=== PATIENT | female | born 1930 | race Caucasian/White ===

== ENCOUNTER 2020-01-03 16:59 | Inpatient (IN) | payer MEDICARE, OTHER ==
--- NOTE | 2020-01-03 17:37 | EDM.PDOC ---
ED HPI GENERAL MEDICAL PROBLEM - General Chief Complaint: General Stated Complaint: WEAKNESS Time Seen by Provider: 01/03/20 17:15 Source of Information: Reports: Patient History Limitations: Reports: No Limitations - History of Present Illness INITIAL COMMENTS - FREE TEXT/NARRATIVE: Patient presents to the Emergency department from the clinic with complaints of lower weakness extremity and heavy feeling. Patient states that this morning when she woke up she felt her lower extremities were heavy feeling. She needed to use her walker she went to get her hair done at the living facility. After she was completed with her appointment her legs continue to feel more progressively heavy. They ended up calling the nurse and bring in a wheelchair. Patient was brought back to the nurses station vital signs were taken. Patient ended up getting appointment and was seen in the clinic at around 3 PM this afternoon labs were drawn. No phone call was completed by the primary care provider but the patient was sent over the emergency department for further evaluation and work-up regarding the lower extremity weakness. Patient states that she denies any headache, nausea, vomiting, chest pain, shortness of breath, GI upset, or loss of bowel or bladder. Does have extensive peripheral edema and states that she does have edema on a normal basis but does feel that her legs are more stiff and hard than they normally are. She does have some visual impairment in general after having a stroke approximately 5 years ago. Patient also states that she has some right sided numbness and tingling that started after her stroke 5 years ago. Patient denies any changes in either of these symptoms since then and does not feel that any of them have gotten any worse or progressive today. Patient denies any COVID-19 symptoms that she has been relatively healthy other than the heavy feeling in her lower extremities today. Onset: Sudden, Gradual Duration: Constant Location: Reports: Lower Extremity, Left, Lower Extremity, Right Quality: Reports: Other Improves with: Reports: None Worsens with: Reports: None Associated Symptoms: Reports: No Other Symptoms ED ROS GENERAL - Review of Systems Review Of Systems: Comprehensive ROS is negative, except as noted in HPI. Constitutional: Denies: Fever, Chills, Malaise, Weakness, Fatigue, Night Sweats, Diaphoresis, Decreased Appetite, Weight Loss HEENT: Reports: No Symptoms Respiratory: Reports: No Symptoms Cardiovascular: Reports: No Symptoms Endocrine: Reports: No Symptoms GI/Abdominal: Reports: No Symptoms : Reports: No Symptoms Skin: Reports: No Symptoms Neurological: Reports: No Symptoms Psychiatric: Reports: No Symptoms ED EXAM, GENERAL - Physical Exam Exam: See Below Exam Limited By: No Limitations General Appearance: Alert, WD/WN, No Apparent Distress Eye Exam: Bilateral Eye: Other (poor vision ) Throat/Mouth: Normal Inspection, Normal Lips, Normal Voice, No Airway Compromise Head: Atraumatic, Normocephalic Neck: Normal Inspection, Supple, Non-Tender, Full Range of Motion Respiratory/Chest: No Respiratory Distress, Lungs Clear, Normal Breath Sounds, No Accessory Muscle Use, Chest Non-Tender Cardiovascular: Normal Peripheral Pulses, Regular Rate, Rhythm, No Edema Peripheral Pulses: 2+: Dorsalis Pedis (L), Dorsalis Pedis (R), 4+: Radial (L), Radial (R) GI/Abdominal: Normal Bowel Sounds, Soft, Non-Tender Back Exam: Normal Inspection, Full Range of Motion Extremities: Normal Inspection, Normal Range of Motion, Non-Tender, Normal Capillary Refill Neurological: Alert, Oriented, CN II-XII Intact Psychiatric: Normal Affect, Normal Mood Skin Exam: Warm, Normal Color, No Rash, Erythema, Other (3+ edema bilateral lower extremities ) Course - Vital Signs Last Recorded V/S: Last Vital Signs Temp 36.9 C 01/03/20 17:31 Pulse 62 01/03/20 17:31 Resp 20 01/03/20 17:31 BP 184/65 H 01/03/20 17:31 Pulse Ox 95 01/03/20 17:31 - Orders/Labs/Meds Orders: Active Orders 24 hr Category Date Time Status EKG Documentation Completion [RC] STAT Care 01/03/20 17:21 Active Labs: Laboratory Tests 01/03/20 01/03/20 Range/Units 17:37 17:37 PT 20.9 H (9.5-12.3) SEC INR 2.0 (2.0-3.5) Troponin I < 0.017 (<=0.056) ng/mL NT-Pro-B Natriuret Pep 1627 H (<=450) pg/mL Departure - Departure Time of Disposition: 18:20 Disposition: Admitted As Inpatient 68 Condition: Good Clinical Impression: Weakness Fluid overload Qualifiers: Hypervolemia type: other Qualified Code(s): E87.79 - Other fluid overload - Discharge Information Referrals: Nicolette Harris DO [Primary Care Provider] - Forms: ED Department Discharge Sepsis Event Note (ED) - Focused Exam Vital Signs: Vital Signs Temp Pulse Resp BP Pulse Ox 01/03/20 17:31 36.9 C 62 20 184/65 H 95 - My Orders Last 24 Hours: My Active Orders 01/03/20 17:21 EKG Documentation Completion [RC] STAT - Assessment/Plan Last 24 Hours: My Active Orders 01/03/20 17:21 EKG Documentation Completion [RC] STAT Assessment:: 1. bilateral lower leg weakness 2. peripheral edema Plan: 1. Labs completed in the ER. Results reviewed with the patient 2. CT head completed in ER. 3. Labs completed in the clinic today: WBC 6.3, RBC 3.59, HGB 11.2, glucose 100, BUN 20, CR 0.95, N+ 141 K+ 4.6 GFR 56. 4. EKG completed in ER- Left bundle branch block noted 5. Lasix 20mg IV given in the ER 6. Consultation completed with Dr. Harris who will admit acute care for weakness and fluid overload 7. Patient and nursing staff was updated regarding the plan of care 8. Patient and family are agreeable to the above plan of care 9. All questions and concerns were addressed with the patient and family prior to admission
--- NOTE | 2020-01-03 18:08 | CT ---
[id number] CT/CT Head WO IV EXAM: CT Head WO IV CLINICAL DATA: WEAKNESS NEUROLOGIC DEFICIT COMPARISON: NO PREVIOUS SIMILAR EXAM IS AVAILABLE FOR COMPARISON. FINDINGS: There is no mass or mass effect. An old lacunar infarct is seen involving the posterior limb of the internal capsule on the left There is no hemorrhage or hydrocephalus. There are no extra-axial fluid collections. There are no sites of abnormal attenuation. IMPRESSION: NO PLAIN CT EVIDENCE OF ACUTE INTRACRANIAL PROCESS. Carlitos Tidwell MD 01/03/20 3627 Thank you for allowing us to participate in the care of your patient.
[2020-01-03] MEDS ORDERED: Furosemide 20 MG/2 ML VIAL IV ONE (18:14)
[2020-01-03] MEDS: Sodium Chloride 0.9% 10 ML Syringe FLUSH PRN (18:26)
[2020-01-03] MEDS ORDERED: ALPRAZolam 0.5 MG Tab PO PRN (20:08)
[2020-01-03] MEDS ORDERED: Warfarin 5 MG Tab PO SCH (20:15)
[2020-01-03] MEDS: atorvaSTATin 40 MG Tab PO SCH (21:02)
--- NOTE | 2020-01-03 23:34 | HP ---
CHIEF COMPLAINT: Leg weakness. HISTORY OF PRESENT ILLNESS: This is an 89-year-old female who was feeling fine yesterday, but when she got up this morning she noticed both legs were weak and she was having a hard time walking. She did get her hair done. She also had some right arm numbness, but she attributes that to her stroke that she had years ago. She had not had any cough. No fever or chills. No burning with urination. Just having trouble walking. Therefore, a clinic visit was made. However, her blood pressure was elevated and there was concern she might have had a stroke, so she was transitioned over to the ER and had a head CT, which failed to reveal any acute strokes or bleeding. She is on Coumadin, and her INR was therapeutic at 2.2. She did have an old lacunar infarct involving the posterior limb of the internal capsule on the left noted. She also had a CBC, which showed a mild anemia 11.2, but improved from her previous hemoglobin. Her white count was normal at 6.3. Her glucose was 100. The rest of her electrolyte panel was all normal. She has not been short of breath. She denies orthopnea, but she has had some weight gain over time and increased edema to her lower extremities. She did have back in October, a TSH significantly elevated to 39, and was started on thyroid medication. The patient has had some heart issues ever since about 07/2018. She had a Holter at that time, which showed her to have some bradycardia. No tachycardia. No echo was performed, but she was started on Lasix. Her EKG today does show a new left bundle-branch block, but again no chest pain known. No known history of coronary disease. Coumadin is for history of DVT and stroke. She has not been documented to have AFib. ALLERGIES: Her allergy list is none. MEDICATION LIST: Reviewed. Includes levothyroxine 25 mcg daily, Coumadin 5 mg on Monday, Monday, Monday, 2.5 the rest of the week, Celexa 20 mg daily, Lipitor 40 mg daily, Prilosec 20 mg daily, Prolia every 6 months, Xanax 0.25 every 12 hours as needed for nervousness or anxiety, Tylenol as needed, Timoptic eye drops, vitamin D 2000 units daily, calcium and D, and multivitamin. PAST MEDICAL HISTORY: Includes the acute left SITE PLANNER stroke in 2015. Her vision was affected. Adjustment disorder on Celexa, mild anemia, history of atrial septal defect, on Coumadin since her stroke, glaucoma, history of the DVT, essential hypertension, lumbar radiculopathy. At one point, took hydrocodone, but has been off it for years. 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 Osteopenia with increased fracture risk, on Prolia. PAST SURGICAL HISTORY: The patient has had a left shoulder arthroscopy. FAMILY HISTORY: Both parents are . Her mother did have hypothyroidism. Father had emphysema. SOCIAL HISTORY: The patient is . She lives at [facility] with her . She used to work at [employer]. She had 4 children. She is a nonsmoker, nondrinker. REVIEW OF SYSTEMS: Constitutional: The patient thinks she has gained some weight, but no fever, no chills. She has had some weakness, especially in her legs. HEENT: No sore throat. No trouble swallowing. Cardiac: No chest pain. No palpitations. Respiratory: No cough. No shortness of breath. Otherwise, all systems reviewed and found to be negative unless otherwise stated. LABORATORY WORK: In the clinic again was discussed in the HPI. Her lab work in the ER showed an INR of 2.0. Troponin negative. ProBNP 1627. TSH ordered and pending. EKG, again left bundle-branch block. Chest x-ray pending. ASSESSMENT: 1. Bilateral leg edema with known hypothyroidism. We will rule out severe hypothyroidism, but also treat for congestive heart failure given the new left bundle-branch block. It is very likely the patient has some heart failure. We will see how she does. We will repeat lab work in the morning to include her magnesium level. The patient has not required any Lasix in the past, but we will give her some here especially due to the significantly elevated blood pressures. 2. Essential hypertension with currently uncontrolled blood pressures probably contributing to her edema and swelling. This should improve with Lasix. We will also continue her home medications. 3. Hypothyroidism. We will continue her levothyroxine. If her TSH is over 50, I will give her some IV thyroid medication. 4. History of stroke with deep venous thrombosis. She is on Coumadin. She has a therapeutic INR. 5. Left bundle-branch block. No history of coronary disease. We will monitor with telemetry. 6. Anemia. Her hemoglobin is around her baseline. 7. Osteoporosis. PLAN: At this point, the patient will be admitted for acute cares. We will hold off on any IV fluids. We will work on blood pressure and diuresis. For her stress ulcer prophylaxis, we will continue her on Prilosec. Otherwise, she is a code level 3. She would not want CPR or intubation. Her was also present during our visit. MKA: 01/03/2020 20:33:01 MODL: 01/03/2020 23:07:01 /[id number]
[2020-01-03] MEDS: Acetaminophen 325 MG Tab PO SCH (23:54)
[2020-01-04] MEDS: Acetaminophen 325 MG Tab PO SCH ×5 (06:13→20:53)
[2020-01-04] MEDS ORDERED: Levothyroxine 25 MCG Tab PO SCH ×2 (07:00→08:00)
[2020-01-04] MEDS ORDERED: Furosemide 20 MG/2 ML VIAL IV SCH (08:00)
[2020-01-04] MEDS: Sodium Chloride 0.9% 10 ML Syringe FLUSH PRN ×2 (09:03→12:28)
[2020-01-04] MEDS: Citalopram 20 MG Tab PO SCH (09:05)
[2020-01-04] MEDS: Calcium Carbonate/Vitamin D3 1250 MG-200 Unit Tab PO SCH (09:05)
[2020-01-04] MEDS: Multivitamins with Iron/Calcium/Folic Acid/Minerals Tab PO SCH (09:05)
[2020-01-04] MEDS: Omeprazole 20 MG Cap.CR PO SCH (09:05)
[2020-01-04] MEDS ORDERED: Magnesium Sulfate/Water 2 GM in Premix Bag 1 BAG IV ONE (09:13)
[2020-01-04] MEDS: Timolol Maleate 0.5% Ophth Soln 5 ML Bottle EYEBOTH SCH ×2 (09:13→20:50)
[2020-01-04] MEDS: Levothyroxine 75 MCG Tab PO SCH (09:38)
[2020-01-04] MEDS ORDERED: ceFAZolin 1 GM Vial IVPUSH SCH ×2 (10:00→12:00)
--- NOTE | 2020-01-04 11:29 | CR ---
[id number] RAD/RAD Chest PA or AP 1V EXAM: SINGLE VIEW CHEST. INDICATION: LOWER EXTREMITY SWELLING COMPARISON: NO PREVIOUS SIMILAR EXAM IS AVAILABLE FINDINGS: The lungs are clear The cardiac silhouette is enlarged The aorta is slightly tortuous There is a small hiatal hernia IMPRESSION: NO PNEUMONIA OR EDEMA Carlitos Tidwell MD 01/04/20 1128 Thank you for allowing us to participate in the care of your patient.
--- NOTE | 2020-01-04 11:39 | PN ---
Progress Note for KIRILL STOUT Date: 01/04/2020 Room #: VM.204 SUBJECTIVE: This is hospital day #2 on an 89-year-old admitted with bilateral leg weakness and swelling. She has pain and achiness all over, especially worse in her left lower leg which is now red and was not red on admission. She took some Tylenol now just this morning. She has been afebrile. She has not had any trouble breathing. No cough. Her chest x-ray looked okay. Her UA has not yet returned. Her blood pressure which was quite elevated on admission has improved with IV diuresis. She has been incontinent of urine. The patient otherwise was recently started on Synthroid for hypothyroidism. Her TSH continues to be up to 29. She does have no history of heart failure, but EKG showed a new left bundle- branch block. Her troponins have been negative. She has had no events on telemetry, been sinus benji around 54. OBJECTIVE: VITAL SIGNS: Her temperature is 98.3, pulse 54, blood pressure 141/47, respiratory rate 17, and O2 of 95% on room air. GENERAL: She is in no acute distress. She is resting comfortably in bed. HEART: Regular rate and rhythm. S1, S2 without murmur. LUNGS: Lung sounds are clear to auscultation bilaterally without crackles or wheezes. ABDOMEN: Positive bowel sounds. Soft, nontender. EXTREMITIES: Warm and dry. Just trace edema, now it has significantly improved, but she has the redness and tenderness to the left lee. MENTAL STATUS: She is alert, she is orientated x3. LABORATORY DATA: Lab work today; white count normal 6.4, hemoglobin down slightly from 11 to 10.3. Sodium 142, potassium 4, chloride 104, bicarb 32, BUN 22, creatinine up slightly to 1.2, magnesium low at 1.6. ASSESSMENT: 1. Severe hypothyroidism with bilateral leg edema and weakness. We will increase her levothyroxine to 75 mcg daily. 2. Generalized achiness. We will do a sedimentation rate to rule out polymyalgia. 3. Left lower extremity cellulitis, possibly causing some of her weakness. We will start her on some IV Ancef today. 4. Possible acute heart failure exacerbation, unspecified. I am going to continue IV Lasix given her hypertension, but just once daily. 5. Essential hypertension with improving blood pressures. Continue home medications. 6. History of stroke with previous deep venous thrombosis. She is on Coumadin. We will check an INR tomorrow. 7. Chronic anemia. Hemoglobin remained stable. 8. Osteoporosis. PLAN: At this point, the patient will continue on acute cares. We will start IV antibiotics. We will get her UA today, straight cath if needed. We will add on a CRP to this morning's labs and repeat lab work tomorrow with an INR and an ESR. For DVT prophylaxis, she is therapeutic on Coumadin. MKA: 01/04/2020 10:02:50 MODL: 01/04/2020 10:40:02 /[id number]
[2020-01-04] MEDS: atorvaSTATin 40 MG Tab PO SCH (20:52)
[2020-01-04] MEDS: Warfarin 2.5 MG Tab PO SCH (20:53)
[2020-01-04] MEDS: ceFAZolin 1 GM Vial IVPUSH SCH (20:55)
[2020-01-05] MEDS: Acetaminophen 325 MG Tab PO SCH ×7 (01:45→23:56)
[2020-01-05] MEDS: Levothyroxine 75 MCG Tab PO SCH (06:20)
[2020-01-05] MEDS ORDERED: Furosemide 20 MG/2 ML VIAL IV SCH (08:00)
[2020-01-05] MEDS: ceFAZolin 1 GM Vial IVPUSH SCH ×2 (08:58→21:28)
[2020-01-05] MEDS: Multivitamins with Iron/Calcium/Folic Acid/Minerals Tab PO SCH (09:00)
[2020-01-05] MEDS: Citalopram 20 MG Tab PO SCH (09:00)
[2020-01-05] MEDS: Calcium Carbonate/Vitamin D3 1250 MG-200 Unit Tab PO SCH (09:00)
[2020-01-05] MEDS: Omeprazole 20 MG Cap.CR PO SCH (09:00)
[2020-01-05] MEDS: Timolol Maleate 0.5% Ophth Soln 5 ML Bottle EYEBOTH SCH ×2 (09:01→21:28)
[2020-01-05] MEDS: Sodium Chloride 0.9% 10 ML Syringe FLUSH PRN ×2 (09:03→21:29)
[2020-01-05] MEDS: Hydrochlorothiazide 12.5 MG Cap PO SCH (09:06)
[2020-01-05] MEDS ORDERED: Magnesium Hydroxide 400 MG/5 ML Susp 30 ML Cup PO ONE ×2 (09:09→12:45)
--- NOTE | 2020-01-05 10:51 | PN ---
Progress Note for KIRILL STOUT Date: 01/05/2020 Room #: VM.204 SUBJECTIVE: This is hospital day #3 for an 89-year-old admitted with bilateral leg weakness and swelling. Concern was for a CHF exacerbation, although patient has not had a history of that or ever been on Lasix. She does have known history of stroke due to DVT, not even a history of atrial fibrillation. On her 2nd hospital day, it was noted that her lower extremity on the left was red and more tender. Therefore, she was started on IV Ancef for cellulitis. The swelling and redness are improving. It is batch still operator to palpation but tender also on the right lee. She also had a normal ESR that was done due to being achy all over yesterday. Her CRP was 1. Her CK level came today at 298. It had not been checked previously. The patient states that all her achiness is gone. She has not had any cough. No shortness of breath. She has been afebrile. Blood pressures continue to be high. She has not had a bowel movement since admission, and she has been eating between 50% to 80% of her meals over the last day. The patient says last bowel movement was probably on , which would have been the 25th. OBJECTIVE: VITAL SIGNS: Today, the patient's temperature 98.9, pulse 52, blood pressure 160/78, respiratory rate 16, and O2 of 96 on room air. GENERAL: She is in no acute distress. HEART: Regular rate and rhythm. S1, S2 without murmur. LUNGS: Lung sounds are clear to auscultation bilaterally without crackles or wheezes. EXTREMITIES: Warm and dry. She has just trace edema. She has redness over the left lee above the ankle. It has not spread. She has normal range of motion of the ankle with no joint effusion. There is no worsening warmth there, but it is slightly tender to palpation. MENTAL STATUS: She is alert. She is orientated x3. ABDOMEN: Positive bowel sounds. Soft, nontender. LABORATORY WORK: Does show her to have white count of 5.4; hemoglobin 10.4, which is up from yesterday; and platelets 153. INR 2.1. Sodium 143; potassium 4; chloride 104; bicarbonate 30; BUN 22; creatinine 1.3; magnesium replaced yesterday, not yet repeated; and CK 298. Her TSH was also 29.5 on admission. ASSESSMENT: 1. Severe hypothyroidism with bilateral leg edema and weakness. She was increased on levothyroxine to 75 mcg daily. She is aware that this may take time to improve. 2. Left lower extremity cellulitis, on day #2 of intravenous Ancef, improving. This was probably contributing somewhat to her symptoms as well. 3. Possible acute heart failure exacerbation. The patient has not had any further signs or symptoms. No shortness of breath. No edema on her chest x-ray. We will stop intravenous Lasix. 4. Essential hypertension. Blood pressures continue to be elevated. She will start on hydrochlorothiazide daily. We will avoid beta blockers due to bradycardia and for her mild renal insufficiency with creatinine up to 1.3 from diuresis, we will hold off on any lisinopril right now. 5. History of previous stroke with deep vein thrombosis. She is on Coumadin. INR therapeutic today. 6. Chronic anemia. Hemoglobin is stable. 7. Osteoporosis. 8. History of anxiety. Her moods have been good. PLAN: At this point, the patient will continue on acute cares. We will continue on the IV Ancef. We will repeat laboratory work tomorrow and get her up and working with therapies to see if she is stable to go home versus needing swing bed. The patient is agreeable to this plan. MKA: 01/05/2020 09:12:26 MODL: 01/05/2020 09:39:17 /[id number]
[2020-01-05] MEDS: Warfarin 2.5 MG Tab PO SCH (21:26)
[2020-01-05] MEDS: atorvaSTATin 40 MG Tab PO SCH (21:26)
[2020-01-06] MEDS: Acetaminophen 325 MG Tab PO SCH ×3 (04:00→12:11)
[2020-01-06] MEDS: Levothyroxine 75 MCG Tab PO SCH (06:39)
[2020-01-06 07:35] LABS: ANION GAP 11.2 mmol/L (10-20)
[2020-01-06] MEDS: Sodium Chloride 0.9% 10 ML Syringe FLUSH PRN (07:43)
[2020-01-06] MEDS: Multivitamins with Iron/Calcium/Folic Acid/Minerals Tab PO SCH (07:45)
[2020-01-06] MEDS: Citalopram 20 MG Tab PO SCH (07:45)
[2020-01-06] MEDS: Hydrochlorothiazide 12.5 MG Cap PO SCH (07:45)
[2020-01-06] MEDS: Calcium Carbonate/Vitamin D3 1250 MG-200 Unit Tab PO SCH (07:46)
[2020-01-06] MEDS: Omeprazole 20 MG Cap.CR PO SCH (07:46)
[2020-01-06] MEDS: ceFAZolin 1 GM Vial IVPUSH SCH (07:48)
--- NOTE | 2020-01-06 08:26 | HP ---
ADDENDUM: PHYSICAL EXAMINATION: Vital Signs: On admission, her temperature is 99.4, pulse 62, blood pressure 184/64, respiratory rate 16, O2 of 95% on room air. General: She is in no acute distress. Heart: Regular rate and rhythm. S1, S2 without murmur. Lungs: Sounds are clear to auscultation bilaterally without crackles or wheezes. Extremities: Warm and dry, but 2+ edema bilaterally with significant tenderness, but no redness or warmth. Mental Status: She is alert, she is orientated x3. Her pupils are equal, round, reactive to light. She has equal ride attendant strength bilaterally, but her skin does appear mildly pale. MKA: 01/04/2020 10:04:54 MODL: 01/04/2020 11:04:20 /[id number]
[2020-01-06] MEDS: Timolol Maleate 0.5% Ophth Soln 5 ML Bottle EYEBOTH SCH (08:49)
[2020-01-06] MEDS ORDERED: Lisinopril 2.5 MG Tab PO SCH (11:45)
[2020-01-06] MEDS ORDERED: Cephalexin 250 MG Cap PO SCH (12:00)
--- NOTE | 2020-01-07 04:09 | DISCH ---
PRIMARY DISCHARGE DIAGNOSES: 1. Bilateral leg weakness secondary to severe hypothyroidism. 2. Left lower extremity cellulitis. 3. Leg swelling and edema, concern for heart failure. However, the patient has no history of this and had no breathing issues. 4. History of stroke, on Coumadin for previous blood clots with therapeutic INR. 5. Essential hypertension, uncontrolled but under improved control on hydrochlorothiazide, previously she took low-dose lisinopril. 6. Chronic anemia. Her hemoglobin has been stable. 7. History of anxiety. She has not required any extra Xanax. 8. Osteoporosis. REASON FOR ADMISSION: On the date of admission, this 89-year-old female came into the clinic with bilateral leg pain that started that morning at assisted living. There were also some reports of right arm numbness, so she was sent to the ER for a stroke code. However, her right arm numbness she reports was from her previous stroke. She had a head CT which did not show any acute bleeds. She had lab work which pretty much looked stable. Her inflammation marker was normal. Due to some generalized pain on the next morning, I did check a CK which was 298, but that did normalize. She did not get any IV fluid. She actually got IV Lasix due to her elevated blood pressures and like the 180 systolic which did improve her blood pressure. Her proBNP was 1627, but she never at any point had any shortness of breath and her chest x-ray did not show any fluid. UA did not show an infection. Repeated TSH was 29. Her creatinine was 1.2 on admit and was down to 1.1 on discharge. Hemoglobin remained in the 10 range which was normal for her. Otherwise, the patient worked with Therapies today and they felt she would benefit from a swing bed stay. Initially, her legs were both tender, but on the morning of the , she had some redness and warmth and was started on IV Ancef, but will be switched over to oral Keflex on antibiotic day #3 today. PHYSICAL EXAMINATION: Vital Signs: Discharge vitals include a temperature 99. The patient had no high fevers during her stay. Weight 64.8 kg, pulse 80, blood pressure 120/49, respiratory rate 16, O2 of 94 on room air. General: She is in no acute distress. Heart: Regular rate and rhythm. S1, S2 without murmurs. Lungs: Lung sounds are clear to auscultation bilaterally without crackles or wheezes. Abdomen: Positive bowel sounds. Soft, nontender. Extremities: Warm and dry. No edema. Mental Status: Alert and orientated x3. DISCHARGE PLANS/INSTRUCTIONS: The patient is going over to swing bed for further therapies. We will get an OT assessment as well. She will use the incentive spirometry. We will repeat lab work on Monday to get another INR. We will continue her on hydrochlorothiazide, but I will hold off on starting her on any lisinopril now that her blood pressures are under better control. Greater than 30 minutes spent on the discharge process. MKA: 01/06/2020 14:16:11 MODL: 01/06/2020 14:32:34 /[id number]
[2020-01-07] MEDS ORDERED: Non-Formulary Medication 1 Each (Denosumab [Prolia] 60 MG) SUBCUT SCH (20:15)
== END 2020-01-06 13:17 | disposition swing bed (61) | DRG 644 ==
LOC: VM.ED 16:59 → VM.MS 18:14
PROVIDERS: ADMIT Internal Medicine; ATTEND Internal Medicine
DX: R53.1 Weakness (principal); E87.79 Other fluid overload; R60.9 Edema, unspecified; H54.7 Unspecified visual loss; E03.9 Hypothyroidism, unspecified; L03.116 Cellulitis of left lower limb; Q21.1 Atrial septal defect; I50.9 Heart failure, unspecified; I11.0 Hypertensive heart disease with heart failure; D64.9 Anemia, unspecified; F41.9 Anxiety disorder, unspecified; M81.0 Age-related osteoporosis without current pathological fracture; F43.20 Adjustment disorder, unspecified; M54.16 Radiculopathy, lumbar region; M19.011 Primary osteoarthritis, right shoulder; M85.80 Other specified disorders of bone density and structure, unspecified site; I44.7 Left bundle-branch block, unspecified; Z86.73 Personal history of transient ischemic attack (TIA), and cerebral infarction without residual deficits; Z79.1 Long term (current) use of non-steroidal anti-inflammatories (NSAID); Z79.01 Long term (current) use of anticoagulants; Z79.890 Hormone replacement therapy; Z79.899 Other long term (current) drug therapy; Z86.718 Personal history of other venous thrombosis and embolism
CPT/HCPCS: 36415; 70450; 71045; 80048; 81001; 82550; 83735; 83880; 84443; 84484; 85025; 85610; 85652; 86140; 93005; 97162-GP; 99284-GF; 99285-25; A9270-GY; J0690; J1940; J3475

== ENCOUNTER 2020-01-06 12:34 | Inpatient (IN) | payer MEDICARE, OTHER ==
[2020-01-06] MEDS ORDERED: Sodium Chloride 0.9% 10 ML Syringe FLUSH PRN (13:37)
[2020-01-06] MEDS: Acetaminophen 325 MG Tab PO SCH ×2 (16:45→21:08)
[2020-01-06] MEDS ORDERED: Warfarin 5 MG Tab PO SCH (20:00)
[2020-01-06] MEDS: ALPRAZolam 0.5 MG Tab PO PRN (21:08)
[2020-01-06] MEDS: Cephalexin 250 MG Cap PO SCH (21:08)
[2020-01-06] MEDS: atorvaSTATin 40 MG Tab PO SCH (21:09)
[2020-01-06] MEDS: Timolol Maleate 0.5% Ophth Soln 5 ML Bottle EYEBOTH SCH (21:09)
[2020-01-07] MEDS: Acetaminophen 325 MG Tab PO SCH ×6 (01:30→19:50)
[2020-01-07] MEDS: Levothyroxine 75 MCG Tab PO SCH (06:08)
[2020-01-07] MEDS: Omeprazole 20 MG Cap.CR PO SCH (06:08)
[2020-01-07] MEDS: Hydrochlorothiazide 12.5 MG Cap PO SCH (08:12)
[2020-01-07] MEDS: Cephalexin 250 MG Cap PO SCH ×3 (08:13→19:50)
[2020-01-07] MEDS: Multivitamins with Iron/Calcium/Folic Acid/Minerals Tab PO SCH (08:13)
[2020-01-07] MEDS: Calcium Carbonate/Vitamin D3 1250 MG-200 Unit Tab PO SCH (08:13)
[2020-01-07] MEDS: Citalopram 20 MG Tab PO SCH (08:13)
[2020-01-07] MEDS: Timolol Maleate 0.5% Ophth Soln 5 ML Bottle EYEBOTH SCH ×2 (08:16→19:51)
[2020-01-07] MEDS: atorvaSTATin 40 MG Tab PO SCH (19:50)
[2020-01-07] MEDS: Warfarin 2.5 MG Tab PO SCH (19:50)
[2020-01-07] MEDS: ALPRAZolam 0.5 MG Tab PO PRN (21:30)
[2020-01-08] MEDS: Acetaminophen 325 MG Tab PO SCH ×7 (00:46→20:23)
[2020-01-08] MEDS: Omeprazole 20 MG Cap.CR PO SCH ×2 (05:32→07:01)
[2020-01-08] MEDS: Levothyroxine 75 MCG Tab PO SCH ×2 (05:32→07:01)
[2020-01-08 07:26] LABS: ANION GAP 9.7 mmol/L (10-20)
[2020-01-08] MEDS: Timolol Maleate 0.5% Ophth Soln 5 ML Bottle EYEBOTH SCH ×2 (08:24→20:29)
[2020-01-08] MEDS: Lactobacillus Rhamnosus GG (Probiotic) Cap PO SCH (08:25)
[2020-01-08] MEDS: Multivitamins with Iron/Calcium/Folic Acid/Minerals Tab PO SCH (08:25)
[2020-01-08] MEDS: Citalopram 20 MG Tab PO SCH (08:25)
[2020-01-08] MEDS: Cephalexin 250 MG Cap PO SCH ×3 (08:25→20:23)
[2020-01-08] MEDS: Calcium Carbonate/Vitamin D3 1250 MG-200 Unit Tab PO SCH (08:25)
[2020-01-08] MEDS: Hydrochlorothiazide 12.5 MG Cap PO SCH (08:25)
[2020-01-08] MEDS: atorvaSTATin 40 MG Tab PO SCH (20:23)
[2020-01-08] MEDS: ALPRAZolam 0.5 MG Tab PO PRN (20:29)
[2020-01-09] MEDS: Acetaminophen 325 MG Tab PO SCH ×6 (01:42→19:37)
[2020-01-09] MEDS: Omeprazole 20 MG Cap.CR PO SCH (06:33)
[2020-01-09] MEDS: Levothyroxine 75 MCG Tab PO SCH (06:33)
[2020-01-09] MEDS: Multivitamins with Iron/Calcium/Folic Acid/Minerals Tab PO SCH (07:47)
[2020-01-09] MEDS: Calcium Carbonate/Vitamin D3 1250 MG-200 Unit Tab PO SCH (07:48)
[2020-01-09] MEDS: Cephalexin 250 MG Cap PO SCH ×3 (07:48→19:37)
[2020-01-09] MEDS: Hydrochlorothiazide 12.5 MG Cap PO SCH (07:48)
[2020-01-09] MEDS: Lactobacillus Rhamnosus GG (Probiotic) Cap PO SCH (07:48)
[2020-01-09] MEDS: Citalopram 20 MG Tab PO SCH (07:48)
[2020-01-09] MEDS: Timolol Maleate 0.5% Ophth Soln 5 ML Bottle EYEBOTH SCH ×2 (07:48→19:38)
[2020-01-09] MEDS: Warfarin 2.5 MG Tab PO SCH (19:36)
[2020-01-09] MEDS: atorvaSTATin 40 MG Tab PO SCH (19:37)
[2020-01-09] MEDS: ALPRAZolam 0.5 MG Tab PO PRN (19:40)
[2020-01-10] MEDS: Acetaminophen 325 MG Tab PO SCH ×6 (00:56→20:05)
[2020-01-10] MEDS: Levothyroxine 75 MCG Tab PO SCH (06:14)
[2020-01-10] MEDS: Omeprazole 20 MG Cap.CR PO SCH (06:14)
[2020-01-10] MEDS: Lactobacillus Rhamnosus GG (Probiotic) Cap PO SCH (09:20)
[2020-01-10] MEDS: Hydrochlorothiazide 12.5 MG Cap PO SCH (09:20)
[2020-01-10] MEDS: Multivitamins with Iron/Calcium/Folic Acid/Minerals Tab PO SCH (09:20)
[2020-01-10] MEDS: Calcium Carbonate/Vitamin D3 1250 MG-200 Unit Tab PO SCH (09:20)
[2020-01-10] MEDS: Cephalexin 250 MG Cap PO SCH ×3 (09:20→20:04)
[2020-01-10] MEDS: Citalopram 20 MG Tab PO SCH (09:20)
[2020-01-10] MEDS: Timolol Maleate 0.5% Ophth Soln 5 ML Bottle EYEBOTH SCH ×2 (09:22→20:07)
[2020-01-10] MEDS: Warfarin 5 MG Tab PO SCH (20:05)
[2020-01-10] MEDS: atorvaSTATin 40 MG Tab PO SCH (20:05)
[2020-01-11] MEDS: Acetaminophen 325 MG Tab PO SCH ×6 (02:54→20:02)
[2020-01-11] MEDS: Omeprazole 20 MG Cap.CR PO SCH (06:34)
[2020-01-11] MEDS: Levothyroxine 75 MCG Tab PO SCH (06:34)
[2020-01-11] MEDS: Calcium Carbonate/Vitamin D3 1250 MG-200 Unit Tab PO SCH (10:13)
[2020-01-11] MEDS: Citalopram 20 MG Tab PO SCH (10:13)
[2020-01-11] MEDS: Hydrochlorothiazide 12.5 MG Cap PO SCH (10:13)
[2020-01-11] MEDS: Lactobacillus Rhamnosus GG (Probiotic) Cap PO SCH (10:13)
[2020-01-11] MEDS: Multivitamins with Iron/Calcium/Folic Acid/Minerals Tab PO SCH (10:13)
[2020-01-11] MEDS: Timolol Maleate 0.5% Ophth Soln 5 ML Bottle EYEBOTH SCH ×2 (10:14→20:04)
[2020-01-11] MEDS: atorvaSTATin 40 MG Tab PO SCH (20:01)
[2020-01-11] MEDS: Warfarin 2.5 MG Tab PO SCH (20:02)
[2020-01-12] MEDS: Acetaminophen 325 MG Tab PO SCH ×6 (02:08→20:12)
[2020-01-12] MEDS: Omeprazole 20 MG Cap.CR PO SCH (06:32)
[2020-01-12] MEDS: Levothyroxine 75 MCG Tab PO SCH (06:32)
[2020-01-12] MEDS: Timolol Maleate 0.5% Ophth Soln 5 ML Bottle EYEBOTH SCH ×2 (08:35→20:12)
[2020-01-12] MEDS: Calcium Carbonate/Vitamin D3 1250 MG-200 Unit Tab PO SCH (08:36)
[2020-01-12] MEDS: Hydrochlorothiazide 12.5 MG Cap PO SCH (08:36)
[2020-01-12] MEDS: Lactobacillus Rhamnosus GG (Probiotic) Cap PO SCH (08:37)
[2020-01-12] MEDS: Multivitamins with Iron/Calcium/Folic Acid/Minerals Tab PO SCH (08:37)
[2020-01-12] MEDS: Citalopram 20 MG Tab PO SCH (08:37)
[2020-01-12] MEDS: Warfarin 2.5 MG Tab PO SCH (20:12)
[2020-01-12] MEDS: atorvaSTATin 40 MG Tab PO SCH (20:12)
[2020-01-13] MEDS: Acetaminophen 325 MG Tab PO SCH ×6 (06:06→20:41)
[2020-01-13] MEDS: Omeprazole 20 MG Cap.CR PO SCH (06:06)
[2020-01-13] MEDS: Levothyroxine 75 MCG Tab PO SCH (06:06)
[2020-01-13] MEDS: Timolol Maleate 0.5% Ophth Soln 5 ML Bottle EYEBOTH SCH ×2 (08:51→20:40)
[2020-01-13] MEDS: Lactobacillus Rhamnosus GG (Probiotic) Cap PO SCH (08:52)
[2020-01-13] MEDS: Citalopram 20 MG Tab PO SCH (08:52)
[2020-01-13] MEDS: Calcium Carbonate/Vitamin D3 1250 MG-200 Unit Tab PO SCH (08:52)
[2020-01-13] MEDS: Multivitamins with Iron/Calcium/Folic Acid/Minerals Tab PO SCH (08:52)
[2020-01-13] MEDS: Hydrochlorothiazide 12.5 MG Cap PO SCH (08:52)
[2020-01-13] MEDS: Warfarin 5 MG Tab PO SCH (20:40)
[2020-01-13] MEDS: atorvaSTATin 40 MG Tab PO SCH (20:40)
[2020-01-14] MEDS: Acetaminophen 325 MG Tab PO SCH ×4 (06:12→13:35)
[2020-01-14] MEDS: Levothyroxine 75 MCG Tab PO SCH (06:42)
[2020-01-14] MEDS: Omeprazole 20 MG Cap.CR PO SCH (06:42)
[2020-01-14] MEDS: Citalopram 20 MG Tab PO SCH (08:15)
[2020-01-14] MEDS: Hydrochlorothiazide 12.5 MG Cap PO SCH (08:15)
[2020-01-14] MEDS: Timolol Maleate 0.5% Ophth Soln 5 ML Bottle EYEBOTH SCH (08:15)
[2020-01-14] MEDS: Lactobacillus Rhamnosus GG (Probiotic) Cap PO SCH (08:15)
[2020-01-14] MEDS: Calcium Carbonate/Vitamin D3 1250 MG-200 Unit Tab PO SCH (08:15)
[2020-01-14] MEDS: Multivitamins with Iron/Calcium/Folic Acid/Minerals Tab PO SCH (08:15)
--- NOTE | 2020-01-14 22:17 | DISCH ---
PRIMARY DISCHARGE DIAGNOSES: 1. A left lower extremity cellulitis. 2. Bilateral leg weakness due to cellulitis and severe hypothyroidism. 3. Severe hypothyroidism, on replacement. 4. Leg swelling and edema likely due to severe hypothyroidism and not any heart failure. The patient has no history of that. 5. History of stroke, on Coumadin due to previous blood clots. INR therapeutic on discharge. 6. Essential hypertension, under poor control on hydrochlorothiazide. Previously took lisinopril in the remote past. We will restart it again if needed. 7. Chronic anemia. 8. History of anxiety. 9. Osteoporosis. REASON FOR ADMISSION: On the date of admission, this 89-year-old female came into the clinic with bilateral leg pain and weakness that had started that morning. She also had right arm numbness, so there was concern for a stroke code. However, the right arm numbness was from her previous stroke like 5 years ago. The patient had lab work. Her inflammation markers were normal, but her CK level was mildly elevated at 298 and did normalize without intervention. She does take Lipitor. By the next hospital day, her leg was more tender and red. It was felt that she had cellulitis and she was started on IV Ancef and switched over to oral Keflex to complete a 7-day course. UA was negative for infection. A TSH was up to 29. It had previously been about 30 a couple of months ago and she was started on replacement. Otherwise, the patient had no cough, no shortness of breath. She had a COVID test prior to discharge to assisted living, which was negative. She had INR monitoring, which was showing her to be therapeutic at 2.0 on discharge. It was 2.2 yesterday. Hemoglobin was stable at 10.5 during her stay. She has chronic anemia. Creatinine was 1.1 on discharge. She did receive some IV Lasix during her acute stay; however, did not have any significant diuresis. PHYSICAL EXAMINATION: Discharge Vitals: Include temperature 97.5, pulse 55, blood pressure 154/45, respiratory rate 17, and O2 of 98% on room air. General: She is in no acute distress. Heart: Regular rate and rhythm. S1, S2 without murmur. Lungs: Lung sounds were clear to auscultation bilaterally without crackles or wheezes. Extremities: Warm, dry. No edema. Slight redness and dry skin over that left lee. No open sores, but it was tender to palpation. Tender also on the right lee, but not quite as tender. Mental Status: She is alert and oriented x3. DISCHARGE PLANS AND INSTRUCTIONS: The patient is going back to [facility]. She will have an INR and BMP in 1 week. She will have home health for therapies. Antibiotics were completed during her stay, but she should take probiotics for another week. Lipitor was discontinued. We increased her levothyroxine to 100 daily, and we will do a TSH again in 6 weeks. We will use hydrocortisone cream on her left leg for 2 weeks' time and keep the legs elevated and use stockings to help with swelling. New medication for blood pressure, hydrochlorothiazide 25 mg daily. If readings remain above 160 systolic, I will restart lisinopril at 5 mg daily. [id number] encounter occurred with myself on 01/14/2020. Reason for home health is for teaching and assessments by Nursing and monitoring for leg swelling and pain as well as physical therapy for help with gait and mobility given her previous history of stroke and impaired mobility due to the weakness from the hypothyroidism. I will periodically review this plan of care. The patient is home bound due to needing the assist of another to leave her home due to generalized weakness from severe hypothyroidism as she needs a walker as well as impaired vision from her previous stroke that she is no longer able to drive. Greater than 30 minutes spent on this discharge process. MKA: 01/14/2020 09:57:40 MODL: 01/14/2020 20:19:31 /[id number]
[2020-02-12] MEDS ORDERED: DENOSUMAB 60 MG SUBCUT SCH (08:00)
== END 2020-01-14 13:30 | disposition home health service (06) | DRG 603 ==
LOC: VM.MS 13:17
PROVIDERS: ADMIT Internal Medicine; ATTEND Internal Medicine
DX: L03.116 Cellulitis of left lower limb (principal); E03.9 Hypothyroidism, unspecified; I10 Essential (primary) hypertension; D64.9 Anemia, unspecified; F41.9 Anxiety disorder, unspecified; M81.0 Age-related osteoporosis without current pathological fracture; Z79.890 Hormone replacement therapy; Z86.73 Personal history of transient ischemic attack (TIA), and cerebral infarction without residual deficits; Z79.01 Long term (current) use of anticoagulants; Z79.899 Other long term (current) drug therapy; Z20.828 Contact with and (suspected) exposure to other viral communicable diseases
CPT/HCPCS: 36415; 80048; 85025; 85610; 97110-GO; 97110-GP; 97116-GP; 97165-GO; 97530-GP; A9270-GY; U0002